=== PATIENT | female | born 1975 | race Two or more races ===

== ENCOUNTER 2020-06-10 17:40 | Emergency (ER) | payer OTHER ==
[~2020-06-10] VITALS: Ht 165.1 cm; Wt 117.9 kg
[2020-06-10] MEDS ORDERED: fentaNYL CITRATE 100 MCG/2 ML VL IV ONE (18:30)
[2020-06-10] MEDS ORDERED: KETOROLAC TROMETH 30 MG/ML 1ML VIAL IV ONE (18:30)
[2020-06-10] MEDS ORDERED: HYDROmorphone HCL 2 MG/ML VL IV ONE (20:00)
[2020-06-10 20:35] VITALS: BP 163/88
== END 2020-06-10 20:38 | disposition home or self-care (01) ==
LOC: EDBD 17:40 → ER 17:46
DX: S82.831A Other fracture of upper and lower end of right fibula, initial encounter for closed fracture (principal); S82.301A Unspecified fracture of lower end of right tibia, initial encounter for closed fracture; E11.9 Type 2 diabetes mellitus without complications; I10 Essential (primary) hypertension; E78.5 Hyperlipidemia, unspecified; W01.0XXA Fall on same level from slipping, tripping and stumbling without subsequent striking against object, initial encounter; Y93.89 Activity, other specified; Y92.89 Other specified places as the place of occurrence of the external cause; Y99.8 Other external cause status
CPT/HCPCS: 29515; 73610; 96374; 96375; 99285; J1170; J1885; J3010